=== PATIENT | female | born 1980 | race African-American/Black ===

== ENCOUNTER 2020-09-24 20:10 | Emergency (ER) | payer MEDICAID ==
[~2020-09-24] VITALS: Ht 172.7 cm; Wt 71.2 kg
[2020-09-24 21:58] VITALS: BP 137/89
[2020-09-24] MEDS ORDERED: KETOROLAC TROMETH 60MG/2ML VIAL IM ONE (22:15)
[2020-09-24 23:06] LABS: Urine Bacteria NONE SEEN /hpf (None Seen); Urine Blood Negative /uL (Negative); Urine Hyaline Cast FEW /lpf (0 - 2); Urine Mucus FEW (None Seen); Urine Specific Gravity 1.032 (1.001-1.035); Urine WBC 3 /hpf (0 - 5)
== END 2020-09-24 23:32 | disposition home or self-care (01) ==
LOC: ER 20:12
DX: G89.29 Other chronic pain (principal); M54.5 Low back pain; N10 Acute pyelonephritis; M79.18 Myalgia, other site; F12.10 Cannabis abuse, uncomplicated
CPT/HCPCS: 81001; 96372; 99283; J1885